=== PATIENT | male | born 2000 ===

== ENCOUNTER 2025-03-08 16:03 | Outpatient (CLI) | payer OTHER, SELFPAY ==
--- NOTE | ~2025-03-08 | XR_ITS ---
Cervical Spine: AP, oblique, lateral, open-mouth views coronal with neutral, flexion, and extension p ositioning Clinical History: Pain Findings: The normal lordotic curve is maintained. The vertebral bodies and posterior elements appea r intact. The intervertebral disc spaces are well maintained. Pre-vertebral soft tissues are unremar kable. Impression: No significant abnormality is seen. Reviewed, dictated and finalized at location . Impression: No significant abnormality is seen.
== END 2025-03-08 16:04 | disposition home or self-care (01) ==
LOC: GOSHIMG 16:05
PROVIDERS: PCP Chiropractor; Visit Provider Chiropractor
DX: M54.2 Cervicalgia (principal)
CPT/HCPCS: 72052